=== PATIENT | male | born 1990 | race Caucasian/White ===

== ENCOUNTER 2022-04-10 15:53 | Emergency (ER) | payer OTHER, SELFPAY ==
[2022-04-10 16:16] VITALS: BP 124/80; PULSE 99; RESP 18; TEMP 36.3; O2SAT 99
[2022-04-10 16:17] VITALS: BP 124/80; PULSE 99; RESP 18; TEMP 36.3; O2SAT 99
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
== END 2022-04-10 17:19 | disposition home or self-care (01) ==
PROVIDERS: Emergency Provider Registered Nurse
DX: J06.9 Acute upper respiratory infection, unspecified (principal); Z20.818 Contact with and (suspected) exposure to other bacterial communicable diseases; K21.9 Gastro-esophageal reflux disease without esophagitis
CPT/HCPCS: 87081; 87426; 87804; 87880; 99203; C9803; G0463

== ENCOUNTER 2022-06-15 11:35 | Emergency (ER) | payer OTHER, SELFPAY ==
[2022-06-15 12:03] VITALS: BP 125/79; PULSE 62; RESP 18; TEMP 36.2; O2SAT 100
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
[2022-06-15] MEDS: methylPREDNISolone SOD SUCC 125 MG VIAL IM (12:38)
== END 2022-06-15 12:44 | disposition home or self-care (01) ==
PROVIDERS: Emergency Provider Nurse Practitioner
DX: L23.7 Allergic contact dermatitis due to plants, except food (principal); K21.9 Gastro-esophageal reflux disease without esophagitis; Z98.52 Vasectomy status
CPT/HCPCS: 96372; 99213; G0463; J2930